=== PATIENT | female | born 1965 | race Caucasian/White ===

== ENCOUNTER → 2018-01-09 | Outpatient (CLI) | payer BC | LOC: MC.RAD 07:35 | DX: Z12.31 Encounter for screening mammogram for malignant neoplasm of breast (principal) ==

== ENCOUNTER → 2019-05-17 | Outpatient (CLI) | payer BC | LOC: MC.RAD 09:29 | DX: Z12.31 Encounter for screening mammogram for malignant neoplasm of breast (principal) ==

== ENCOUNTER 2020-08-14 14:28 | Outpatient (RCR) | payer OTHER | END 2020-09-11 | disposition home or self-care (01) | LOC: WSOH | DX: S60.221A Contusion of right hand, initial encounter (principal); J45.909 Unspecified asthma, uncomplicated; Y99.0 Civilian activity done for income or pay; Z90.711 Acquired absence of uterus with remaining cervical stump ==

== ENCOUNTER → 2020-09-06 | Outpatient (CLI) | payer OTHER | LOC: COL.RAD 07:41 | DX: S60.221D Contusion of right hand, subsequent encounter (principal) ==

== ENCOUNTER 2020-09-14 08:31 | Outpatient (RCR) | payer OTHER | END 2020-12-13 | disposition home or self-care (01) | LOC: WSOH | DX: S60.221D Contusion of right hand, subsequent encounter (principal); J45.909 Unspecified asthma, uncomplicated; Y99.0 Civilian activity done for income or pay; Z98.890 Other specified postprocedural states ==

== ENCOUNTER → 2021-01-24 | Outpatient (CLI) | payer BC | LOC: MC.RAD 08:40 | DX: Z12.31 Encounter for screening mammogram for malignant neoplasm of breast (principal); N63.10 Unspecified lump in the right breast, unspecified quadrant; N63.20 Unspecified lump in the left breast, unspecified quadrant ==

== ENCOUNTER → 2021-02-01 | Outpatient (CLI) | payer BC | LOC: MC.RAD 10:51 | DX: N60.01 Solitary cyst of right breast (principal); N63.20 Unspecified lump in the left breast, unspecified quadrant; N63.10 Unspecified lump in the right breast, unspecified quadrant ==

== ENCOUNTER → 2021-02-06 | Outpatient (CLI) | payer BC | LOC: MC.RAD 07:47 | DX: N60.02 Solitary cyst of left breast (principal); N63.10 Unspecified lump in the right breast, unspecified quadrant ==

== ENCOUNTER 2021-06-14 08:21 | Day surgery (SDC) | payer BC ==
[~2021-06-14] VITALS: Ht 162.6 cm; Wt 87.1 kg
[2021-06-14 10:40] VITALS: BP 112/60; PULSE 81; TEMP 98.3
--- NOTE | 2021-06-14 10:40 | NUR ---
PATIENT BROUGHT BACK TO ENDO ROOM 4 VIA CART. AMBULATED TO CHAIR WITHOUT DIFFICULTY. VITAL SIGNS STABLE. REPORT REICEVED FROM MORGAN ESPINOZA. WARM BLANKET PROVIDED. AT BEDSIDE TO DRIVE PATIENT HOME. REQUESTS CRACKERS AND WATER. DR. COLON AT BEDSIDE TO EXPLAIN RESULTS. CALL MAYERS WITHIN REACH.
[2021-06-14 10:55] VITALS: BP 115/61; PULSE 78
--- NOTE | 2021-06-14 10:55 | NUR ---
PATIENT TOLERATING FOOD AND DRINK WITHOUT DIFFICULTY. WILL CONTINUE TO MONITOR.
[2021-06-14 11:10] VITALS: BP 103/74; PULSE 62
--- NOTE | 2021-06-14 11:10 | NUR ---
PATIENT VITAL SIGNS STABLE. AMBULATED TO BATHROOM WITHOUT DIFFICULTY. IV REMOVED, INTACT. PATIENT TO GET DRESSED AT THIS TIME. WILL MONITOR.
--- NOTE | 2021-06-14 11:15 | NUR ---
DISCHARGE INSTRUCTIONS REVEIWED WITH PATIENT AND FAMILY. ALL QUESTIONS ANSWERED. PATIENT BROUGHT DOWN TO LOBBY VIA WHEEL CHAIR. KAMINI TO DRIVE PATIENT HOME.
[2021-06-14 11:45] VITALS: BP 125/69; PULSE 82; TEMP 98.6
== END 2021-06-14 11:20 | disposition home or self-care (01) ==
LOC: SDCO 08:21
DX: D12.3 Benign neoplasm of transverse colon (principal); D12.4 Benign neoplasm of descending colon; E78.5 Hyperlipidemia, unspecified; E66.9 Obesity, unspecified; J45.909 Unspecified asthma, uncomplicated; Z90.710 Acquired absence of both cervix and uterus; Z20.822 Contact with and (suspected) exposure to COVID-19; Z79.899 Other long term (current) drug therapy
CPT/HCPCS: J2704; J7030

== ENCOUNTER → 2022-03-26 | Outpatient (CLI) | payer BC | LOC: MC.RAD 07:04 | DX: Z12.31 Encounter for screening mammogram for malignant neoplasm of breast (principal); N63.20 Unspecified lump in the left breast, unspecified quadrant ==

== ENCOUNTER → 2022-03-29 | Outpatient (CLI) | payer BC | LOC: MC.RAD 08:55 | DX: N60.02 Solitary cyst of left breast (principal) ==

== ENCOUNTER → 2024-03-18 | Outpatient (CLI) | payer BC | LOC: MC.RAD 15:10 | DX: Z12.31 Encounter for screening mammogram for malignant neoplasm of breast (principal) ==

== ENCOUNTER 2024-04-01 07:21 | Day surgery (SDC) | payer BC ==
[~2024-04-01] VITALS: Ht 162.6 cm; Wt 81.8 kg
[~2024-04-01 07:21] MED LIST: LR 1,000 ML IV SCH; Ondansetron 4 MG/2 ML VIAL IV PRN
[2024-04-01 08:28] VITALS: BP 108/68; PULSE 79; TEMP 98.2
[2024-04-01] MEDS ORDERED: ALEVE 220MG220 MG PO (08:31)
[2024-04-01 09:25] VITALS: BP 100/71; PULSE 80; TEMP 97.1
[2024-04-01 09:40] VITALS: BP 101/63; PULSE 68
[2024-04-01 09:55] VITALS: BP 102/61; PULSE 68
--- NOTE | 2024-04-01 10:00 | NUR ---
0925 RETURNS TO ROOM 3 PER CART. AWAKE, ALERT. RESP UNLABORED. AMBULATES TO RECLINER WITH STANDBY ASSIST. DENIES NAUSEA OR ABD PAIN. VITAL SIGNS OBTAINED. CALL LIGHT AT SIDE. HERE. 0940 TOLERATES PO SODA WITHOUT NAUSEA 0945 DISCHARGE INSTRUCTIONS REVIEWED. PATIENT VERBALIZES UNDERSTANDING. COPY PROVIDED IN DISCHARGE FOLDER 0972 DRESSES SELF
== END 2024-04-01 10:03 | disposition home or self-care (01) ==
LOC: SDCO 07:21
DX: Z12.11 Encounter for screening for malignant neoplasm of colon (principal); K63.5 Polyp of colon; E66.9 Obesity, unspecified
CPT/HCPCS: J2704; J7120